=== PATIENT | female | born 1945 | race Caucasian/White ===

== ENCOUNTER 2016-07-12 13:16 | Outpatient (CLI) | payer OTHER, MEDICARE ==
--- NOTE | 2016-07-12 15:20 | DIAGNOSTIC IMAGING REPORT ---
PROCEDURE: CT SOFT TISSUE NECK W/O CONT INDICATION: NECK MASS; VOCAL CORD PERALISIS TECHNIQUE: Axial scans without and with phonation. Coronal and sagittal re-formations. Study done without IV contrast (creatinine 2.1, and GFR 46). COMPARISON: CT soft tissue neck 01/21/2016 FINDINGS: There is thickening of the aryepiglottic fold with right-sided piriform sinus dilation and dilation of the laryngeal ventricle indicative of right vocal cord paralysis. Right jugular lymph nodes measure up to 7 mm. Parotid, submandibular and thyroid glands are unremarkable. Severe bullous emphysema. Severe bilateral carotid atherosclerosis. Mastoids and visualized sinuses are clear. Severe degenerative changes of the cervical spine. IMPRESSION: 1. Thickening of the aryepiglottic fold suspicious for a mass with findings suggestive of right vocal cord paralysis 2. Right jugular lymph nodes measuring 7 mm or less 3. Severe bullous emphysema
== END 2016-07-12 23:00 ==
LOC: CT SRH 13:16 → LAB SRH 13:16 → CT SRH 13:30
DX: R22.1 Localized swelling, mass and lump, neck (principal); J38.01 Paralysis of vocal cords and larynx, unilateral; R93.8 Abnormal findings on diagnostic imaging of other specified body structures
CPT/HCPCS: 90074; 91631; 92560